=== PATIENT | female | born 1965 | race Caucasian/White ===

== ENCOUNTER 2021-08-22 13:23 | Inpatient (IN) | payer MEDICAID ==
[~2021-08-22] VITALS: Ht 162.6 cm; Wt 72.0 kg
[2021-08-22] MEDS ORDERED: dexamethasone sod phosphate 10mg/ml inj IM STA (13:38)
[2021-08-22] MEDS ORDERED: oxyCODONE/APAP 10/325mg tablet PO ONE (13:40)
[2021-08-22] MEDS ORDERED: ketorolac trometh inj. 60 MG/2 ML VIAL IM ONE (13:40)
[2021-08-22] MEDS ORDERED: OXYC1TAB17 PO (13:41)
[2021-08-22] MEDS ORDERED: PRED20TA PO (13:42)
[2021-08-22] MEDS ORDERED: ALBU8.5H17 IH (13:42)
[2021-08-22] MEDS ORDERED: AZIT-63 PO (13:42)
--- NOTE | 2021-08-22 15:10 | NUR ---
pt is eating sandwich, debby well, no n/v
[2021-08-22] MEDS ORDERED: normal saline 1000ML IV soln IVB ONE (15:40)
--- NOTE | 2021-08-22 15:50 | NUR ---
PLACED PT ON NASAL CANNULA, 90%ON 4LITERS, INCREASED TO 8 LITERS PER VERBAL ORDER FROM MARLEE Chavira,
[2021-08-22] MEDS ORDERED: BENA1TAB88 PO (16:07)
[2021-08-22] MEDS ORDERED: HYDR-3964 PO (16:07)
[2021-08-22 16:11] LABS: BASOPHILS # (AUTO) 0.1 X10'3 (0-0.2); BASOPHILS % (AUTO) 0.6 % (0-1); EOSINOPHILS # (AUTO) 0.2 X10'3 (0-0.9); EOSINOPHILS % (AUTO) 1.1 % (0-6); HEMATOCRIT 45.2 % (35.0-45.0); HEMOGLOBIN 14.9 g/dl (12.0-16.0); LYMPHOCYTES # (AUTO) 1.8 X10'3 (1.1-4.8); LYMPHOCYTES % (AUTO) 12.2 % (21-51); MEAN CORPUSCULAR HEMOGLOBIN 29.1 PG (27.0-31.0); MEAN CORPUSCULAR VOLUME 88.2 FL (78-98); MEAN PLATELET VOLUME 8.1 FL (7.4-10.4); MONOCYTES # (AUTO) 0.8 X10'3 (0-0.9); MONOCYTES % (AUTO) 5.7 % (2-12); NEUTROPHILS # (AUTO) 11.8 X10'3 (1.8-7.7); NEUTROPHILS % (AUTO) 80.4 % (42-75); PLATELET COUNT 450 X10'3 (140-440); RED BLOOD COUNT 5.12 X10'6 (4.20-5.60); WHITE BLOOD COUNT 14.7 X10'3 (4.5-11.0)
[2021-08-22] MEDS ORDERED: methylPREDNISolone sod succ 125mg/2ml vial IV ONE (16:30)
[2021-08-22] MEDS ORDERED: normal saline 1000ML IV soln IV ONE (16:30)
[2021-08-22] MEDS ORDERED: ipratropium/albuterol 3ml nebule NEB ONE (16:30)
--- NOTE | 2021-08-22 16:36 | NUR ---
pt taken to room 9, report to Nadia VELOZ
[2021-08-22 17:14] LABS: ALANINE AMINOTRANSFERASE 34 U/L (12-78); ALBUMIN 3.6 G/DL (3.4-5.0); ALBUMIN/GLOBULIN RATIO 0.9 (1.1-1.5); ALKALINE PHOSPHATASE 109 IU/L (46-116); ANION GAP 11 (8-16); ASPARTATE AMINO TRANSFERASE 18 U/L (10-37); BILIRUBIN,TOTAL 0.3 MG/DL (0.1-1.0); BLOOD UREA NITROGEN 12 MG/DL (7-18); BUN/CREATININE RATIO 14.6 (6.6-38.0); CALCIUM 8.8 MG/DL (8.5-10.1); CHLORIDE 99 MMOL/L (99-107); CREATININE 0.82 MG/DL (0.40-0.90); GLUCOSE 169 MG/DL (70-104); POTASSIUM 3.3 MMOL/L (3.5-5.1); SODIUM 138 MMOL/L (135-145); TOTAL CARBON DIOXIDE 27.8 MMOL/L (24-32); TOTAL PROTEIN 7.7 G/DL (6.4-8.2); eGFR 73 ML/MIN
[2021-08-22 17:16] LABS: ETHANOL < 0.010 GM/DL (0.0-0.010)
[2021-08-22] MEDS ORDERED: potassium Cl 20 mEq SR tablet PO PRN (17:20)
[2021-08-22] MEDS ORDERED: magnesium 2GM in 50ml NS 50 ML IV PRN (17:20)
[2021-08-22] MEDS ORDERED: ipratropium/albuterol 3ml nebule NEB PRN (17:20)
[2021-08-22] MEDS ORDERED: potassium Cl 40MEQ/1/2NS 520ml 520 ML IV PRN ×2 (17:20)
[2021-08-22] MEDS ORDERED: diphenhydrAMINE 25mg capsule PO PRN (17:20)
[2021-08-22] MEDS ORDERED: mag hydrox/Alum hydrox/simeth 30ml oral suspension PO PRN (17:20)
[2021-08-22] MEDS ORDERED: acetaminophen 650mg rectal suppository RC PRN (17:20)
[2021-08-22] MEDS ORDERED: HYDROcodone/acetaminophen 5mg/325mg tablet PO PRN (17:20)
[2021-08-22] MEDS ORDERED: magnesium 4gm in 100ml NS 100 ML IV PRN (17:20)
[2021-08-22] MEDS ORDERED: magnesium Cl slow-release 64mg tablet PO PRN (17:20)
[2021-08-22] MEDS ORDERED: morphine 2 MG/ML inj. syringe IV PRN (17:20)
[2021-08-22] MEDS ORDERED: magnesium hydroxide 30ml (MOM) UD suspension PO PRN (17:20)
[2021-08-22] MEDS ORDERED: acetaminophen 325mg tablet PO PRN ×2 (17:20)
[2021-08-22] MEDS ORDERED: ondansetron/PF 4mg/2ml inj IV PRN (17:20)
[2021-08-22] MEDS ORDERED: bisacodyl 10mg suppository rectal RC PRN (17:20)
[2021-08-22] MEDS ORDERED: nicotine 14mg patch - 24hr TD ONE (17:55)
--- NOTE | 2021-08-22 18:06 | NUR ---
RELIEVING RN FOR BREAK, 2ND LITER NS INFUSING W/O, RT AT BEDSIDE
[2021-08-22] MEDS: azithromycin 250mg tablet PO SCH (18:09)
[2021-08-22] MEDS: CefTRIAXone/D5W-Rocephin 1gm 50 ML IV SCH (18:10)
[2021-08-22] MEDS: normal saline 1000ml 1,000 ML IV SCH (19:12)
[2021-08-22] MEDS: methylPREDNISolone sod succ 125mg/2ml vial IV SCH (19:13)
[2021-08-22] MEDS: potassium Cl 20 mEq SR tablet PO PRN (19:13)
[2021-08-22] MEDS: K and/or MAG REPLACEMENT MC SCH (19:13)
[2021-08-22] MEDS: docusate sod 100mg capsule PO SCH (19:14)
[2021-08-22] MEDS: heparin, porcine 5000 units/ml vial SQ SCH (19:15)
[2021-08-22] MEDS: HYDROcodone/acetaminophen 10/325mg tab PO PRN (19:21)
[2021-08-22] MEDS: morphine 2 MG/ML inj. syringe IV PRN (19:22)
[2021-08-22] MEDS: ipratropium/albuterol 3ml nebule NEB SCH ×2 (19:23→23:59)
[2021-08-22 20:33] LABS: URINE AMPHETAMINE SCREEN POSITIVE (Neg); URINE BARBITUATE SCREEN NEGATIVE (Neg); URINE BENZODIAZEPINES SCREEN NEGATIVE (Neg); URINE CANNABINOID SCREEN NEGATIVE (Neg); URINE COCAINE SCREEN NEGATIVE (Neg); URINE METHADONE SCREEN NEGATIVE (Neg); URINE OPIATE SCREEN POSITIVE (Neg); URINE PHENCYCLIDINE SCREEN NEGATIVE (Neg)
[2021-08-22 20:42] LABS: CLARITY,URINE CLEAR (Clear); COLOR,URINE YELLOW (Yellow); GLUCOSE, URINE 500 mg/dl (Neg); KETONES,URINE NEGATIVE (Neg); NITRITES, URINE NEGATIVE (Neg); OCCULT BLOOD,URINE TRACE-LYSED (Neg); PROTEIN,URINE NEGATIVE (Neg); UA COLLECTION TYPE NON-SPECIFIED
[2021-08-22 20:43] LABS: BACTERIA,URINE FEW /HPF (Neg); LEUKOCYTE ESTERASE ,URINE NEGATIVE (Neg); RBC,URINE 0-2 /HPF (0-2); SQUAMOUS EPITHELIAL CELL,UR FEW /LPF (FEW); UROBILINOGEN,URINE 0.2 E.U/dL (0.2-1.0); WBC,URINE NONE SEEN /HPF (0-4)
[2021-08-23] MEDS: ipratropium/albuterol 3ml nebule NEB SCH ×5 (02:14→23:16)
[2021-08-23] MEDS: methylPREDNISolone sod succ 125mg/2ml vial IV SCH ×4 (02:51→20:59)
[2021-08-23 05:16] LABS: ALANINE AMINOTRANSFERASE 32 U/L (12-78); ALBUMIN 3.1 G/DL (3.4-5.0); ALBUMIN/GLOBULIN RATIO 0.8 (1.1-1.5); ALKALINE PHOSPHATASE 95 IU/L (46-116); ANION GAP 8 (8-16); ASPARTATE AMINO TRANSFERASE 15 U/L (10-37); BILIRUBIN,TOTAL 0.2 MG/DL (0.1-1.0); BLOOD UREA NITROGEN 12 MG/DL (7-18); BUN/CREATININE RATIO 16.7 (6.6-38.0); CALCIUM 8.5 MG/DL (8.5-10.1); CHLORIDE 104 MMOL/L (99-107); CHOL/HDL RATIO 3.3 (0.00-4.99); CHOLESTEROL 201 MG/DL (0-200); CREATININE 0.72 MG/DL (0.40-0.90); GLUCOSE 142 MG/DL (70-104); HDL CHOLESTEROL 61 MG/DL (35-60); LDL CHOLESTEROL 129 MG/DL (50-100); MAGNESIUM 2.1 MG/DL (1.5-2.4); POTASSIUM 3.4 MMOL/L (3.5-5.1); SODIUM 138 MMOL/L (135-145); TOTAL CARBON DIOXIDE 26.2 MMOL/L (24-32); TRIGLYCERIDES 50 MG/DL (20-135); eGFR 85 ML/MIN
[2021-08-23 05:29] LABS: BASOPHILS % (AUTO) 0.2 % (0-1); EOSINOPHILS % (AUTO) 0 % (0-6); HEMATOCRIT 44.5 % (35.0-45.0); HEMOGLOBIN 14.7 g/dl (12.0-16.0); LYMPHOCYTES # (AUTO) 0.9 X10'3 (1.1-4.8); LYMPHOCYTES % (AUTO) 4.7 % (21-51); MEAN CORPUSCULAR HEMOGLOBIN 29.2 PG (27.0-31.0); MEAN CORPUSCULAR VOLUME 88.5 FL (78-98); MEAN PLATELET VOLUME 8.4 FL (7.4-10.4); MONOCYTES # (AUTO) 0.2 X10'3 (0-0.9); MONOCYTES % (AUTO) 0.8 % (2-12); NEUTROPHILS # (AUTO) 18.6 X10'3 (1.8-7.7); NEUTROPHILS % (AUTO) 94.3 % (42-75); PLATELET COUNT 435 X10'3 (140-440); RED BLOOD COUNT 5.03 X10'6 (4.20-5.60); RED CELL DISTRIBUTION WIDTH 14.5 % (11.5-14.5); WHITE BLOOD COUNT 19.8 X10'3 (4.5-11.0)
[2021-08-23] MEDS: potassium Cl 20 mEq SR tablet PO PRN ×2 (07:51→21:22)
[2021-08-23] MEDS: heparin, porcine 5000 units/ml vial SQ SCH ×2 (07:51→20:57)
[2021-08-23] MEDS: azithromycin 250mg tablet PO SCH (07:51)
[2021-08-23] MEDS: HYDROchlorothiazide 12.5mg capsule PO SCH (07:52)
[2021-08-23] MEDS: normal saline 1000ml 1,000 ML IV SCH ×2 (07:52→21:08)
[2021-08-23] MEDS: CefTRIAXone/D5W-Rocephin 1gm 50 ML IV SCH (07:53)
[2021-08-23] MEDS: lisinopril 20mg tablet PO SCH (07:53)
[2021-08-23] MEDS: docusate sod 100mg capsule PO SCH ×2 (07:57→20:57)
[2021-08-23] MEDS: K and/or MAG REPLACEMENT MC SCH ×3 (07:57→21:25)
[2021-08-23] MEDS: morphine 2 MG/ML inj. syringe IV PRN ×2 (08:09→19:43)
[2021-08-23] MEDS: HYDROcodone/acetaminophen 10/325mg tab PO PRN ×2 (13:19→20:56)
[2021-08-23 20:00] VITALS: BP 132/76
[2021-08-23] MEDS: lactobacillus rhamnosus 10,000 MMU CELLS/CAPSULE PO SCH (20:57)
[2021-08-23 22:00] VITALS: BP 127/69
[2021-08-24] MEDS: HYDROcodone/acetaminophen 10/325mg tab PO PRN ×5 (00:53→20:24)
[2021-08-24] MEDS: potassium Cl 20 mEq SR tablet PO PRN (01:13)
[2021-08-24] MEDS: methylPREDNISolone sod succ 125mg/2ml vial IV SCH ×4 (01:14→20:18)
[2021-08-24 02:00] VITALS: BP 134/76
[2021-08-24] MEDS: ipratropium/albuterol 3ml nebule NEB SCH ×6 (03:24→23:13)
--- NOTE | 2021-08-24 05:14 | NUR ---
Newly admitted female patient assessed. Patient is alert and responsive, oriented x 4, was at ER for complaints of right flank pain, as well as SOB. Patient had a fall a day prior, and CT showed multiple right sided rib fractures, as well as right apical pneumothorax. Pain was 9/10 to right flank on admission, and patient administered Hinckley 10 PO PRN twice during the shift. Potassium level was 3.4, and patient administered Potassium PO, and will await next draw. Maintained on 02 at 2L N/C; tolerated.
[2021-08-24 06:03] LABS: BASOPHILS # (AUTO) 0.1 X10'3 (0-0.2); BASOPHILS % (AUTO) 0.2 % (0-1); EOSINOPHILS % (AUTO) 0 % (0-6); HEMATOCRIT 39.3 % (35.0-45.0); HEMOGLOBIN 12.7 g/dl (12.0-16.0); LYMPHOCYTES # (AUTO) 0.7 X10'3 (1.1-4.8); LYMPHOCYTES % (AUTO) 2.1 % (21-51); MEAN CORPUSCULAR HEMOGLOBIN 28.6 PG (27.0-31.0); MEAN CORPUSCULAR HGB CONC 32.4 g/dL (33.0-36.5); MEAN CORPUSCULAR VOLUME 88.3 FL (78-98); MEAN PLATELET VOLUME 8.2 FL (7.4-10.4); MONOCYTES # (AUTO) 0.6 X10'3 (0-0.9); MONOCYTES % (AUTO) 1.7 % (2-12); NEUTROPHILS # (AUTO) 32.1 X10'3 (1.8-7.7); PLATELET COUNT 417 X10'3 (140-440); RED BLOOD COUNT 4.46 X10'6 (4.20-5.60); RED CELL DISTRIBUTION WIDTH 14.7 % (11.5-14.5)
[2021-08-24 06:08] LABS: WHITE BLOOD COUNT 33.4 X10'3 (4.5-11.0)
[2021-08-24 06:22] LABS: ALANINE AMINOTRANSFERASE 29 U/L (12-78); ALBUMIN 2.6 G/DL (3.4-5.0); ALBUMIN/GLOBULIN RATIO 0.7 (1.1-1.5); ALKALINE PHOSPHATASE 83 IU/L (46-116); ANION GAP 7 (8-16); ASPARTATE AMINO TRANSFERASE 12 U/L (10-37); BILIRUBIN,TOTAL 0.2 MG/DL (0.1-1.0); BLOOD UREA NITROGEN 16 MG/DL (7-18); BUN/CREATININE RATIO 22.5 (6.6-38.0); CALCIUM 8.3 MG/DL (8.5-10.1); CHLORIDE 105 MMOL/L (99-107); CREATININE 0.71 MG/DL (0.40-0.90); GLUCOSE 160 MG/DL (70-104); PHOSPHORUS 2.8 MG/DL (2.3-4.5); POTASSIUM 4.3 MMOL/L (3.5-5.1); SODIUM 140 MMOL/L (135-145); TOTAL CARBON DIOXIDE 27.8 MMOL/L (24-32); TOTAL PROTEIN 6.2 G/DL (6.4-8.2); eGFR 86 ML/MIN
[2021-08-24 07:00] VITALS: BP 134/68
[2021-08-24 07:12] LABS: TOTAL CELLS COUNTED 100
[2021-08-24 07:13] LABS: PLATELET ESTIMATE NORMAL; TOXIC GRANULATION 1+
--- NOTE | 2021-08-24 07:54 | NUR ---
critical WBC: 33.4. Dr. Heredia Paged. "PAGER ID: [phone] MESSAGE: RE: Marcie Price: [phone]: critical: WBC 33.4 (up from 19.8) dx: COPD exacerbation. VS WNL. Ivy #[phone]"
[2021-08-24] MEDS: K and/or MAG REPLACEMENT MC SCH ×2 (08:00→20:00)
[2021-08-24] MEDS: CefTRIAXone/D5W-Rocephin 1gm 50 ML IV SCH (08:19)
[2021-08-24] MEDS: docusate sod 100mg capsule PO SCH ×2 (08:21→20:17)
[2021-08-24] MEDS: azithromycin 250mg tablet PO SCH (08:21)
[2021-08-24] MEDS: lactobacillus rhamnosus 10,000 MMU CELLS/CAPSULE PO SCH ×2 (08:21→20:17)
[2021-08-24] MEDS: lisinopril 20mg tablet PO SCH (08:21)
[2021-08-24] MEDS: heparin, porcine 5000 units/ml vial SQ SCH ×2 (08:21→20:19)
[2021-08-24] MEDS: HYDROchlorothiazide 12.5mg capsule PO SCH (08:21)
--- NOTE | 2021-08-24 09:43 | NUR ---
pt refused 0700 svn.
[2021-08-24] MEDS ORDERED: FLU VACC QS2021-22(6MOS UP)/PF 60 MCG/0.5 ML SYRINGE IM ONE (10:00)
--- NOTE | 2021-08-24 10:00 | NUR ---
Pt offered morphine IV prior to going to xray. pt declined morphine "the [employer] is working for now. "
--- NOTE | 2021-08-24 11:00 | NUR ---
pt refused 1100 vitals. pt rights respected
--- NOTE | 2021-08-24 11:30 | NUR ---
Pt returned from xray. pt gave nurse thumbs up and shook head yes that norco is managing her pain.
--- NOTE | 2021-08-24 12:21 | NUR ---
DM consult: A1c 7. Attempted to provide pt w/ written and verbal DM education though pt unavailable. Placed written education w/ RD contact info in chart. Will continue to monitor. Addendum: 08/24/21 at [address] Amended: Links added.
--- NOTE | 2021-08-24 12:32 | NUR ---
Pt screaming at this nurse demanding morphine "You are impeding my progress!! you are retched. YOU ARE REFUSING TO GIVE ME MORPHINE!!." this is the first time this nurse was notified by pt that Fedora was no longer working. additional nurse Yi River RN in room during this conversation. pt finally described pain for this nurse at 10/10 right rib pain. where as prior to that pt only demanding IV morphine.
--- NOTE | 2021-08-24 12:56 | NUR ---
Dr. Heredia around to see patient. Dr. Heredia state "I want to keep this pt overnight to monitor WBC. Discontinue IV morphine, continue with norco for pain control and encourage incentive spirometer. " TORB.
[2021-08-24] MEDS: normal saline 1000ml 1,000 ML IV SCH (12:59)
[2021-08-24 15:00] VITALS: BP 121/73
[2021-08-24] MEDS: nicotine 21mg patch - 24 hr TD SCH (15:52)
--- NOTE | 2021-08-24 16:36 | NUR ---
rounding completed hourly. pt needs anticipated and met. non pharm pain management taught, though pt not very receptive. pain managed with morphine and norco throughout the shift. needs anticipated and met. deep breathing encouraged many times, pt overall with little effort in participation with care. no s/sx acute distress
--- NOTE | 2021-08-24 17:24 | NUR ---
Problems reprioritized. Patient report given, questions answered & plan of care reviewed with Leisa VELOZ.
[2021-08-24 18:00] VITALS: BP 146/93
[2021-08-24 22:00] VITALS: BP 170/89
[2021-08-24] MEDS ORDERED: lisinopril 10 MG tablet PO ONE (22:45)
--- NOTE | 2021-08-24 22:45 | NUR ---
Pt's BP is at 170/[address] Chavez and he prescribed a one time dose of lisinopril 10mg.
[2021-08-25] MEDS: HYDROcodone/acetaminophen 10/325mg tab PO PRN ×4 (01:28→14:23)
[2021-08-25 02:00] VITALS: BP 152/84
[2021-08-25] MEDS: methylPREDNISolone sod succ 125mg/2ml vial IV SCH ×3 (02:01→14:24)
[2021-08-25] MEDS: normal saline 1000ml 1,000 ML IV SCH (02:32)
[2021-08-25] MEDS: ipratropium/albuterol 3ml nebule NEB SCH ×3 (03:05→11:00)
--- NOTE | 2021-08-25 04:55 | NUR ---
[place] Medication Administration: For this medication-pass time frame, all medication were reviewed, dispensed, administered and documented per hospital policy by MAGDIEL Guillaume. [place] documentation: I have reviewed and agree with all interventions, assessments performed and documented by MAGDIEL Guillaume.
--- NOTE | 2021-08-25 06:28 | NUR ---
Problems reprioritized. Patient report given, questions answered & plan of care reviewed with Alanna VELOZ.
--- NOTE | 2021-08-25 06:30 | NUR ---
Patient in room PCU 3027. I have received report from Leisa VELOZ and Asha VELOZ and had the opportunity to ask questions and assume patient care. Pt semi fowlers in bed, breathing even and non labored. no s/sx pain at this time. pt resting with eyes closed. safety measures in place. no ss/x acute distress. IV patent running NS per order.
[2021-08-25 06:48] LABS: BASOPHILS % (AUTO) 0 % (0-1); EOSINOPHILS % (AUTO) 0 % (0-6); HEMATOCRIT 41.1 % (35.0-45.0); HEMOGLOBIN 13.5 g/dl (12.0-16.0); LYMPHOCYTES # (AUTO) 0.8 X10'3 (1.1-4.8); LYMPHOCYTES % (AUTO) 3.1 % (21-51); MEAN CORPUSCULAR HEMOGLOBIN 28.9 PG (27.0-31.0); MEAN CORPUSCULAR HGB CONC 32.8 g/dL (33.0-36.5); MEAN CORPUSCULAR VOLUME 88.1 FL (78-98); MEAN PLATELET VOLUME 8.4 FL (7.4-10.4); MONOCYTES # (AUTO) 0.4 X10'3 (0-0.9); MONOCYTES % (AUTO) 1.4 % (2-12); NEUTROPHILS # (AUTO) 24.9 X10'3 (1.8-7.7); NEUTROPHILS % (AUTO) 95.5 % (42-75); PLATELET COUNT 415 X10'3 (140-440); RED BLOOD COUNT 4.66 X10'6 (4.20-5.60); RED CELL DISTRIBUTION WIDTH 14.5 % (11.5-14.5)
[2021-08-25 06:50] LABS: PARTIAL THROMBOPLASTIN TIME 26 SECONDS (22-32)
[2021-08-25 06:53] LABS: WHITE BLOOD COUNT 26.1 X10'3 (4.5-11.0)
[2021-08-25 07:08] LABS: ALANINE AMINOTRANSFERASE 32 U/L (12-78); ALBUMIN 2.5 G/DL (3.4-5.0); ALBUMIN/GLOBULIN RATIO 0.6 (1.1-1.5); ALKALINE PHOSPHATASE 91 IU/L (46-116); ANION GAP 10 (8-16); ASPARTATE AMINO TRANSFERASE 21 U/L (10-37); BILIRUBIN,TOTAL 0.1 MG/DL (0.1-1.0); BLOOD UREA NITROGEN 17 MG/DL (7-18); BUN/CREATININE RATIO 29.3 (6.6-38.0); CALCIUM 8.4 MG/DL (8.5-10.1); CHLORIDE 104 MMOL/L (99-107); CREATININE 0.58 MG/DL (0.40-0.90); GLUCOSE 152 MG/DL (70-104); MAGNESIUM 2.5 MG/DL (1.5-2.4); PHOSPHORUS 3.5 MG/DL (2.3-4.5); SODIUM 138 MMOL/L (135-145); TOTAL CARBON DIOXIDE 24.3 MMOL/L (24-32); TOTAL PROTEIN 6.4 G/DL (6.4-8.2); eGFR > 90 ML/MIN
[2021-08-25 07:12] LABS: POTASSIUM 4.3 MMOL/L (3.5-5.1)
--- NOTE | 2021-08-25 07:12 | NUR ---
critical wbc 26.1. Dr. Heredia Paged. "PAGER ID: [phone] MESSAGE: RE: Albert Marcie: [id number]: (FYI) Critical: WBC 26.1 (down from 33.4). VS stable. -Alanna #[phone]"
[2021-08-25 07:34] LABS: PLATELET ESTIMATE NORMAL; TOTAL CELLS COUNTED 100
[2021-08-25] MEDS: heparin, porcine 5000 units/ml vial SQ SCH (08:00)
[2021-08-25] MEDS ORDERED: amLODIPine 5mg tablet PO SCH (08:00)
[2021-08-25] MEDS: K and/or MAG REPLACEMENT MC SCH (08:00)
[2021-08-25] MEDS: CefTRIAXone/D5W-Rocephin 1gm 50 ML IV SCH (08:33)
[2021-08-25] MEDS: nicotine 21mg patch - 24 hr TD SCH (08:36)
[2021-08-25] MEDS: docusate sod 100mg capsule PO SCH (08:36)
[2021-08-25] MEDS: HYDROchlorothiazide 12.5mg capsule PO SCH (08:36)
[2021-08-25] MEDS: lisinopril 20mg tablet PO SCH (08:36)
[2021-08-25] MEDS: lactobacillus rhamnosus 10,000 MMU CELLS/CAPSULE PO SCH (08:37)
[2021-08-25] MEDS: azithromycin 250mg tablet PO SCH (08:37)
[2021-08-25] MEDS ORDERED: hydrALAZINE 20mg/ml inj. IV PRN (10:00)
[2021-08-25] MEDS ORDERED: LORazepam 1 MG tablet PO ONE (10:00)
--- NOTE | 2021-08-25 10:03 | NUR ---
Dr. Heredia to tele floor. new orders for norvasc 10mg daily, start first dose now, ativan prior to thorocentesis, and hydralazine prn SBP>160. ok to wait to see how norvasc affects before giving hydralazine. doc notified of pt adventitious lung sounds: rubs and squeaks noted. Dr. Heredia acknowledged and stated plan for pt thoracentesis.
[2021-08-25] MEDS ORDERED: LORazepam 2 mg/ml vial IV ONE (10:25)
--- NOTE | 2021-08-25 11:13 | NUR ---
Angio team at bedside with Gilbert MOYER. Patient consented. US imaging obtained. Per Gilbert MOYER, thoracentesis not indicated due to no significant fluid levels to warrant drainage. Primary RN aware.
[2021-08-25 12:29] VITALS: BP_SYST 196
--- NOTE | 2021-08-25 14:48 | NUR ---
rounding completed hourly. Pt needs anticipated and met. pain addressed both non pharmacologically and pharmacologically with effectiveness. no sob. no s/sx acute distress. pt leaving AMA despite education that pt not clinically ready by this nurse and Dr. Heredia. PIV discontinued. cannula intact. panel monitor discontined. belongings collected and sent with pt. [facility] accompanied by her friend. pt left without s/sx acute distress.
== END 2021-08-25 14:47 | disposition left against medical advice (07) | DRG 135 ==
LOC: ER 13:24 → ED HOLD 17:31 → PCU 3S 08-23 19:55
PROVIDERS: ADMIT Family Medicine; ATTEND Family Medicine
DX: S22.41XA Multiple fractures of ribs, right side, initial encounter for closed fracture (principal); J96.00 Acute respiratory failure, unspecified whether with hypoxia or hypercapnia; J44.1 Chronic obstructive pulmonary disease with (acute) exacerbation; J90 Pleural effusion, not elsewhere classified; E87.6 Hypokalemia; Z53.29 Procedure and treatment not carried out because of patient's decision for other reasons; F15.10 Other stimulant abuse, uncomplicated; W18.39XA Other fall on same level, initial encounter; F17.210 Nicotine dependence, cigarettes, uncomplicated; I10 Essential (primary) hypertension; J93.83 Other pneumothorax; Z20.822 Contact with and (suspected) exposure to COVID-19; Z91.19 Patient's noncompliance with other medical treatment and regimen; Z28.21 Immunization not carried out because of patient refusal; Y93.89 Activity, other specified; Y92.098 Other place in other non-institutional residence as the place of occurrence of the external cause; Y99.8 Other external cause status; Z71.6 Tobacco abuse counseling; Z71.51 Drug abuse counseling and surveillance of drug abuser
CPT/HCPCS: 36415; 71045; 71046; 71250; 80053; 80061; 80305; 80320; 81001; 83036; 83605; 83735; 84100; 84145; 85007; 85025; 85610; 85730; 87040; 87081; 87635; 93005; 93306; 94640; 94760; 96361; 96372; 96374; 97116; 97161; 97530; 99285; C9803; G0378; J0360; J0696; J1100; J1644; J1885; J2060; J2270; J2930; J7030

== ENCOUNTER 2022-08-31 14:55 | Emergency (ER) | payer OTHER, MEDICAID ==
[~2022-08-31] VITALS: Ht 162.6 cm; Wt 72.6 kg
[~2022-08-31 14:55] MED LIST: BENA1TAB88 PO; HYDR-3964 PO
[2022-08-31] MEDS ORDERED: HYDROcodone/acetaminophen 10/325mg tab PO ONE ×2 (15:45→21:55)
--- NOTE | 2022-08-31 15:52 | NUR ---
garden implement mechanic Anabela updated on pt trauma status, pt being taken to CT.
[2022-09-01] MEDS ORDERED: morphine 4 MG/ML inj SYRINge IV ONE
[2022-09-01] MEDS ORDERED: normal saline 1000ml 1,000 ML IV ONE
[2022-09-01] MEDS ORDERED: nicotine 21mg patch - 24 hr TD ONE
[2022-09-01 02:24] LABS: BASOPHILS # (AUTO) 0.1 X10'3 (0-0.2); BASOPHILS % (AUTO) 0.7 % (0-1); EOSINOPHILS # (AUTO) 0.1 X10'3 (0-0.9); HEMATOCRIT 42.7 % (35.0-45.0); HEMOGLOBIN 14.4 g/dl (12.0-16.0); LYMPHOCYTES # (AUTO) 2.3 X10'3 (1.1-4.8); LYMPHOCYTES % (AUTO) 19.2 % (21-51); MEAN CORPUSCULAR HEMOGLOBIN 29.1 PG (27.0-31.0); MEAN CORPUSCULAR HGB CONC 33.7 g/dL (33.0-36.5); MEAN CORPUSCULAR VOLUME 86.3 FL (78-98); MEAN PLATELET VOLUME 7.9 FL (7.4-10.4); MONOCYTES # (AUTO) 0.8 X10'3 (0-0.9); MONOCYTES % (AUTO) 6.2 % (2-12); NEUTROPHILS # (AUTO) 8.9 X10'3 (1.8-7.7); NEUTROPHILS % (AUTO) 72.9 % (42-75); PLATELET COUNT 370 X10'3 (140-440); RED BLOOD COUNT 4.95 X10'6 (4.20-5.60); WHITE BLOOD COUNT 12.2 X10'3 (4.5-11.0)
[2022-09-01 02:38] LABS: ALANINE AMINOTRANSFERASE 32 U/L (12-78); ALBUMIN 3.5 G/DL (3.4-5.0); ALKALINE PHOSPHATASE 87 IU/L (46-116); ANION GAP 7 (8-16); ASPARTATE AMINO TRANSFERASE 28 U/L (10-37); BILIRUBIN,TOTAL 0.3 MG/DL (0.1-1.0); BLOOD UREA NITROGEN 16 MG/DL (7-18); BUN/CREATININE RATIO 23.9 (6.6-38.0); CALCIUM 8.4 MG/DL (8.5-10.1); CHLORIDE 105 MMOL/L (99-107); CREATINE KINASE 465 U/L (26-192); CREATININE 0.67 MG/DL (0.40-0.90); GLUCOSE 112 MG/DL (70-104); POTASSIUM 3.5 MMOL/L (3.5-5.1); SODIUM 141 MMOL/L (135-145); TOTAL CARBON DIOXIDE 29.1 MMOL/L (24-32); TOTAL PROTEIN 7.1 G/DL (6.4-8.2); eGFR > 90 ML/MIN
--- NOTE | 2022-09-01 06:45 | NUR ---
pt moaning in pain ,pt stated she is in lot of pain {everything hurts }refused the morphine ,requesting for dilaudid for pain pt stated she feel like she has to urinate but can't .notified dr nathan recevied verbal order for dilaudid 0.5 mg iv once ,zofran 4 mg iv once and do bladder scan.
[2022-09-01] MEDS ORDERED: HYDROmorphone inj. 0.5 MG/0.5 ML DISP.SYRIN IV ONE (07:00)
[2022-09-01] MEDS ORDERED: ondansetron/PF 4mg/2ml inj IV ONE ×2 (07:00)
--- NOTE | 2022-09-01 07:25 | NUR ---
notified dr nathan regarding bladder scan value(235 ml) as per md let the pt try to urinate herself .pt agrees too.
--- NOTE | 2022-09-01 08:42 | NUR ---
pt is asleep at this time.vitals wnl will cont to monitor.
--- NOTE | 2022-09-01 10:10 | NUR ---
pt came back from mri ,in lot of pain 10/10 sharp in nature and hungry.notified md nathan verbal orders to give regular diet and norco 5 q4hr for pain .will follow the orders.
[2022-09-01] MEDS: HYDROcodone/acetaminophen 5mg/325mg tablet PO PRN ×3 (10:26→19:44)
--- NOTE | 2022-09-01 11:21 | NUR ---
pt up and eating her breakfast .will cont to monitor.pain 02/26.
--- NOTE | 2022-09-01 12:38 | NUR ---
pt sitting up in bed to eat her lunch ,will cont to monitor.
--- NOTE | 2022-09-01 15:31 | NUR ---
seen bruise on pt rgt lasteral thigh ,notified dr nathan order to get stat femur x ray.
--- NOTE | 2022-09-01 15:58 | NUR ---
PT RETURNED FROM CT AND IN BED.
--- NOTE | 2022-09-01 16:25 | NUR ---
TELE NEURO IN PROCESS.
--- NOTE | 2022-09-01 16:26 | NUR ---
TLSO BRACE PLACED PER MD JUSTIN. EMT WILL PLACED THE BRACE AND EDUCATED THE PT ON ADJUSTING FOR COMFORT.
[2022-09-01] MEDS ORDERED: naproxen 500mg tablet PO ONE (19:15)
[2022-09-01] MEDS ORDERED: HYDROmorphone 2mg tablet PO PRN ×2 (21:15→23:05)
[2022-09-01] MEDS ORDERED: TRAM50TA2 PO (22:32)
[2022-09-01] MEDS ORDERED: HYDR-3965 PO (22:32)
[2022-09-01] MEDS ORDERED: NAPR-56 PO (22:32)
[2022-09-02] MEDS: HYDROcodone/acetaminophen 5mg/325mg tablet PO PRN (01:46)
[2022-09-02 01:48] VITALS: BP 132/80
== END 2022-09-02 01:51 | disposition home or self-care (01) ==
LOC: ER 14:55
DX: S32.020A Wedge compression fracture of second lumbar vertebra, initial encounter for closed fracture (principal); M25.551 Pain in right hip; J45.909 Unspecified asthma, uncomplicated; Z79.899 Other long term (current) drug therapy; R32 Unspecified urinary incontinence
CPT/HCPCS: 36415; 70450; 72125; 72131; 73130; 73552; 74176; 80053; 82550; 85025; 96361; 96374; 96375; 99285; J1170; J2405; J7030; L0172